=== PATIENT | female | born 1935 | race Hispanic/Latino ===

== ENCOUNTER → 2022-02-11 | Outpatient (CLI) | payer OTHER ==
[~2022-02-11] MED LIST: AMLO-73 PO; ASPI-1197 PO; CHOL200074 PO; FENO160T16 PO; LISI40TA9 PO; OMEG100014 PO; POTA10CA45 PO; SIMV-43 PO
== END | disposition home or self-care (01) ==
LOC: RAH 08:28
PROVIDERS: ATTEND Family Medicine
DX: R10.9 Unspecified abdominal pain (principal); R63.4 Abnormal weight loss; Z90.711 Acquired absence of uterus with remaining cervical stump
CPT/HCPCS: 76700; 76856